=== PATIENT | male | born 1990 | race Hispanic/Latino ===

== ENCOUNTER 2017-03-09 21:52 | Emergency (ER) | payer OTHER ==
[2017-03-09 22:00] VITALS: BP 135/85; PULSE 105; RESP 16; TEMP 98.7; O2SAT 100
--- NOTE | 2017-03-09 23:21 | ED PDOC ---
HPI: Headache Time Seen by Provider: 03/09/17 22:02 Chief Complaint (Nursing): Dizziness/Lightheaded Chief Complaint (Provider): Headache History Per: Patient History/Exam Limitations: no limitations Onset/Duration Of Symptoms: Days (x4) Current Symptoms Are (Timing): Constant Severity: None Associated Symptoms: Nausea, Other (Visual disturbances). denies: Vomiting Additional Complaint(s): 26 year old male presents to ED with complaints of headache x4 days and has no past medical history. Describes the headache as ongoing after hitting his head on a diving board when attempting to jump off of it. (-) LOC, vomiting, fever, chills, neck pain, or numbness. (+) nausea, lightheadedness, "feeling out of it ", and occasional visual disturbances. PCP: None Past Medical History Reviewed: Historical Data, Nursing Documentation, Vital Signs Vital Signs: Last Vital Signs Temp 98.7 F 03/09/17 21:57 Pulse 105 H 03/09/17 21:57 Resp 16 03/09/17 21:57 BP 135/85 03/09/17 21:57 Pulse Ox 100 03/09/17 21:57 - Medical History PMH: No Chronic Diseases - Surgical History Surgical History: No Surg Hx - Family History Family History: States: No Known Family Hx - Social History Current smoker - smoking cessation education provided: No Ex-Smoker (has not smoked in the last 12 months): No Alcohol: Social Drugs: Denies - Allergies Allergies/Adverse Reactions: Allergies Allergy/AdvReac Type Severity Reaction Status Date / Time Penicillins Allergy RASH Verified 03/09/17 21:57 Review of Systems ROS Statement: Except As Marked, All Systems Reviewed And Found Negative Constitutional: Positive for: Other ((+) "feeling out of it"). Negative for: Fever, Chills Eyes: Positive for: Other ((+) visual disturbances) Gastrointestinal: Positive for: Nausea. Negative for: Vomiting Musculoskeletal: Negative for: Neck Pain Neurological: Positive for: Headache, Dizziness ((+) lightheadedness). Negative for: Numbness, Other ((-) LOC) Physical Exam - Reviewed Nursing Documentation Reviewed: Yes Vital Signs Reviewed: Yes - Physical Exam Appears: Positive for: Non-toxic, No Acute Distress Head Exam: Positive for: ATRAUMATIC, NORMOCEPHALIC Skin: Positive for: Normal Color, Warm, Dry Eye Exam: Positive for: Normal appearance, EOMI, PERRL ENT: Positive for: Normal ENT Inspection Neck: Positive for: Normal, Painless ROM, Supple Cardiovascular/Chest: Positive for: Regular Rate, Rhythm. Negative for: Murmur Respiratory: Positive for: Normal Breath Sounds. Negative for: Respiratory Distress Gastrointestinal/Abdominal: Positive for: Soft. Negative for: Tenderness Back: Positive for: Normal Inspection Extremity: Positive for: Normal ROM. Negative for: Deformity Neurologic/Psych: Positive for: Alert, supervisor cell room II-XII (intact), Oriented, Cerebellar Tests (intact), Gait (steady). Negative for: Motor/Sensory Deficits - ECG O2 Sat by Pulse Oximetry: 100 (RA) Pulse Ox Interpretation: Normal Medical Decision Making Medical Decision Makin Initial impression: concussion r/o traumatic brain injury Initial plan: * CT HEAD 2309 CT FINDINGS Brain: Unremarkable. No acute hemorrhage. No significant white matter disease. No cerebral edema. Ventricles: Unremarkable. No ventriculomegaly. Bones/joints: Unremarkable. No acute fracture. Soft tissues: Unremarkable. Sinuses: Unremarkable as visualized. No acute sinusitis. Mastoid air cells: Unremarkable as visualized. No mastoid effusion. IMPRESSION: No acute intracranial pathology is appreciated. 2316 Patient is medically stable for discharge and will follow up with neurology. Counseling has been provided and patient is in agreement. Return if symptoms persist or acutely worsen. Scribe Attestation: Documented by Sondra Victor acting as a scribe for Keeley Sampson MD. Scribe Attestation: All medical record entries made by the Scribe were at my direction and personally dictated by me. I have reviewed the chart and agree that the record accurately reflects my personal performance of the history, physical exam, medical decision making, and the department course for this patient. I have also personally directed, reviewed, and agree with the discharge instructions and disposition. Disposition - Patient ED Disposition Is Patient to be Admitted: No Counseled Patient/Family Regarding: Studies Performed - Disposition Disposition: Routine/Home Disposition Time: 23:17 Condition: STABLE Forms: [employer] (Slovak)
--- NOTE | 2017-03-10 08:34 | CT ---
PROCEDURE: CT HEAD WITHOUT CONTRAST. HISTORY: DIZZINESS HEADACHE head injury COMPARISON: None available. TECHNIQUE: Axial computed tomography images were obtained through the head/brain without intravenous contrast. Radiation dose: Total exam DLP = 842.99 mGy-cm. This CT exam was performed using one or more of the following dose reduction techniques: Automated exposure control, adjustment of the mA and/or kV according to patient size, and/or use of iterative reconstruction technique. FINDINGS: HEMORRHAGE: No intracranial hemorrhage. BRAIN: No mass effect or edema. No atrophy or chronic microvascular ischemic changes. VENTRICLES: Unremarkable. No hydrocephalus. CALVARIUM: Unremarkable. PARANASAL SINUSES: Unremarkable as visualized. No significant inflammatory changes. MASTOID AIR CELLS: Unremarkable as visualized. No inflammatory changes. OTHER FINDINGS: None. IMPRESSION: No evidence of acute intracranial hemorrhage intracranial collection mass effect or midline shift. No evidence of sinusitis or mastoiditis. Preliminary report was submitted by [facility].
== END 2017-03-09 23:58 | disposition home or self-care (01) ==
LOC: H.ER 21:52
DX: S09.90XA Unspecified injury of head, initial encounter (principal); W22.8XXA Striking against or struck by other objects, initial encounter; Y92.196 Pool of other specified residential institution as the place of occurrence of the external cause